=== PATIENT | male | born 2000 | race Caucasian/White ===

== ENCOUNTER 2020-12-09 21:52 | Emergency (ER) | payer BC ==
[~2020-12-09] VITALS: Ht 180.3 cm; Wt 56.8 kg
[2020-12-09 22:03] VITALS: BP 120/67; TEMP 98.9
[2020-12-09 22:54] LABS: HEMATOCRIT 48.1 % (36.0-47.0); HEMOGLOBIN 16.9 g/dl (12.5-16.1); MEAN CELL VOLUME 92 fl (80.0-95.0); MEAN CORPUSCULAR HEMOGLOBIN 32 pg (26.0-32.0); MEAN CORPUSCULAR HGB CONC 35 g/dl (33.0-37.0); MEAN PLATELET VOLUME 9.8 fl (7.4-10.4); PLATELET COUNT 250 K/mm3 (130-400); RED BLOOD COUNT 5.23 M/mm3 (4.20-5.60)
[2020-12-09 23:04] LABS: ALBUMIN 5.4 gm/dL (3.5-5.0); BILIRUBIN,TOTAL 2.1 mg/dL (0.0-1.0); CALCIUM 10.5 mg/dL (8.4-10.2); CREATININE, serum 1.01 (0.66-1.25); TOTAL PROTEIN 8.6 gm/dL (6.4-8.2)
[2020-12-09 23:12] LABS: BAND 21 % (0-10); LYMPHOCYTE 1 % (20.0-51.0); NEUTROPHILS 77 % (42.0-75.2); PLATELET ESTIMATE NORMAL (NORMAL)
[2020-12-10] MEDS ORDERED: CIPRO 500MG TA500 MG PO (01:12)
[2020-12-10] MEDS ORDERED: FLAGYL500 MG PO (01:12)
[2020-12-10] MEDS ORDERED: ZOFRAN ODT4 MG PO (01:12)
[2020-12-10 03:14] VITALS: PULSE 91
== END 2020-12-10 03:14 | disposition home or self-care (01) ==
LOC: COL.ER 21:52
PROVIDERS: Emergency Medicine
DX: A09 Infectious gastroenteritis and colitis, unspecified (principal)
CPT/HCPCS: J0744; J2270; J2405; J7030; Q9967